=== PATIENT | female | born 1990 | race African-American/Black ===

== ENCOUNTER 2019-12-02 22:52 | Emergency (ER) | payer MEDICAID ==
[~2019-12-02] VITALS: Ht 165.1 cm; Wt 88.5 kg
[2019-12-02 23:12] VITALS: BP 143/76
--- NOTE | 2019-12-02 23:15 | NUR ---
VISUAL ACUITY PERFORMED-- RESULTS FOLLOWS: OD--20/25, OS--20/25, OU--20/30
--- NOTE | 2019-12-03 01:55 | NUR ---
AT CHAIR SIDE EXAMINING PT
--- NOTE | 2019-12-03 02:01 | NUR ---
29/M TO ED WITH BILATERAL EYE IRRITATION UPON WORKING WITH CHEMICALS. PT IS UNSURE OF WHICH CHEMICALS SHE IS EXPOSED TO. SCLERA IS WNL. VISUAL ACUITY PERFORMED IN TRIAGE.
[2019-12-03 02:12] VITALS: BP 143/76
--- NOTE | 2019-12-03 02:12 | NUR ---
Patient discharged with v/s stable. Written and verbal after care instructions given and explained. Patient alert, oriented and verbalized understanding of instructions. Ambulatory with steady gait. All questions addressed prior to discharge. ID band removed. Patient advised to follow up with PMD. Rx of POLYTRIM given. Patient educated on indication of medication including possible reaction and side effects. Opportunity to ask questions provided and answered.
== END 2019-12-03 02:12 | disposition home or self-care (01) ==
LOC: EDSEX → MED 22:52
DX: H10.33 Unspecified acute conjunctivitis, bilateral (principal); L53.9 Erythematous condition, unspecified; R03.0 Elevated blood-pressure reading, without diagnosis of hypertension
CPT/HCPCS: 99283

== ENCOUNTER 2019-12-08 13:11 | Emergency (ER) | payer MEDICAID ==
[~2019-12-08] VITALS: Ht 165.1 cm; Wt 88.5 kg
[2019-12-08 13:25] VITALS: BP 159/81
[2019-12-08] MEDS ORDERED: KETOROLAC 60 MG/2 ML VIAL IM ONE (13:35)
[2019-12-08 14:41] VITALS: BP 159/81
== END 2019-12-08 14:42 | disposition home or self-care (01) ==
LOC: EDSEX 13:11 → MED 13:11
DX: S83.8X1A Sprain of other specified parts of right knee, initial encounter (principal); X50.9XXA Other and unspecified overexertion or strenuous movements or postures, initial encounter; Y93.89 Activity, other specified; Y92.89 Other specified places as the place of occurrence of the external cause; Y99.8 Other external cause status
CPT/HCPCS: 73562; 96372; 99283; J1885; Q0092

== ENCOUNTER 2022-11-05 10:53 | Emergency (ER) | payer MEDICAID ==
[~2022-11-05] VITALS: Ht 165.1 cm; Wt 85.7 kg
[2022-11-05 10:58] VITALS: BP 120/49
--- NOTE | 2022-11-05 11:06 | NUR ---
PT AMB TO BED 12
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
[2022-11-05] MEDS ORDERED: IBUPROFEN 600 MG TAB PO ONE (11:15)
[2022-11-05] MEDS ORDERED: BACITRACIN OINT 500 UNITS/GM PKT TP ONE (11:15)
--- NOTE | 2022-11-05 11:16 | NUR ---
LEFT RING FINGER, LEFT FOREARM IRRIGATED WITH BETADINE x NS
[2022-11-05] MEDS ORDERED: AMOX-999 PO (11:37)
[2022-11-05] MEDS ORDERED: IBUP-2213 PO (11:37)
[2022-11-05] MEDS ORDERED: BACI-416 TP (11:37)
[2022-11-05 11:44] VITALS: BP 120/51
--- NOTE | 2022-11-05 11:45 | NUR ---
Patient discharged with v/s stable. Written and verbal after care instructions given and explained. Patient verbalized understanding. Ambulatory with steady gait. All questions addressed prior to discharge. Advised to follow up with PMD.
== END 2022-11-05 11:44 | disposition home or self-care (01) ==
LOC: MED 10:53
DX: S61.215A Laceration without foreign body of left ring finger without damage to nail, initial encounter (principal); Z79.899 Other long term (current) drug therapy; W50.3XXA Accidental bite by another person, initial encounter; Y93.89 Activity, other specified; Y92.89 Other specified places as the place of occurrence of the external cause; Y99.8 Other external cause status
CPT/HCPCS: 90471; 90715; 99283

== ENCOUNTER 2023-04-01 15:34 | Emergency (ER) | payer MEDICAID ==
[~2023-04-01] VITALS: Ht 165.1 cm; Wt 85.3 kg
[~2023-04-01 15:34] MED LIST: AMOX-999 PO; BACI-418 TP; IBUP-2213 PO
[2023-04-01 15:51] VITALS: BP 127/76; PULSE 102; RESP 20; TEMP 97.9; O2SAT 100
[2023-04-01] MEDS ORDERED: PROM118S5 PO (17:02)
[2023-04-01] MEDS ORDERED: IBUP-2213 PO (17:02)
[2023-04-01] MEDS ORDERED: ACET-2619 PO (17:02)
[2023-04-01 17:16] VITALS: BP 128/76; PULSE 88; RESP 13; TEMP 98.1; O2SAT 100
[2023-04-01 17:56] LABS: FLU A ANTIGEN negative (NEGATIVE); FLU B ANTIGEN negative (NEGATIVE)
== END 2023-04-01 17:16 | disposition home or self-care (01) ==
LOC: EDSEX 15:34 → MED 15:34
DX: J06.9 Acute upper respiratory infection, unspecified (principal); Z20.822 Contact with and (suspected) exposure to COVID-19; Z79.899 Other long term (current) drug therapy
CPT/HCPCS: 99283

== ENCOUNTER 2023-12-25 21:47 | Emergency (ER) | payer MEDICAID ==
[~2023-12-25] VITALS: Ht 165.1 cm; Wt 85.7 kg
[~2023-12-25 21:47] MED LIST changes: +ACET-2619 PO; +PROM118S5 PO
[2023-12-25 21:55] VITALS: BP 148/81; PULSE 88; RESP 16; TEMP 98.1; O2SAT 99
[2023-12-25 22:44] LABS: FLU A ANTIGEN negative (NEGATIVE); FLU B ANTIGEN NEGATIVE (NEGATIVE)
[2023-12-25] MEDS ORDERED: ACET-10509 PO (23:05)
[2023-12-25] MEDS ORDERED: PROM118S5 PO (23:05)
[2023-12-25] MEDS ORDERED: ONDA-188 PO (23:05)
[2023-12-25] MEDS: ONDANSETRON 4 MG ODT PO ONE (23:18)
== END 2023-12-25 23:19 | disposition home or self-care (01) ==
LOC: MED 21:47
DX: U07.1 COVID-19 (principal); Z79.1 Long term (current) use of non-steroidal anti-inflammatories (NSAID); Z79.2 Long term (current) use of antibiotics; Z79.899 Other long term (current) drug therapy
CPT/HCPCS: 87426; 87804; 99283; Q0162